=== PATIENT | female | born 1985 | race Hispanic/Latino ===

== ENCOUNTER 2019-04-09 00:29 | Emergency (ER) | payer BC, MEDICAID, OTHER ==
[2019-04-09 01:15] LABS: BASOPHILS % (AUTO) 0.7 % (0.0-5.0); EOSINOPHILS % (AUTO) 1.9 % (0.0-8.0); HEMATOCRIT 40.8 % (36-48); MEAN CORPUSCULAR HEMOGLOBIN 27.2 pg (27.0-33.0); MEAN CORPUSCULAR HGB CONC 33.7 g/dL (32.0-36.0); MEAN CORPUSCULAR VOLUME 80.8 fL (79-99); MONOCYTES % (AUTO) 6.2 % (3.0-13.0); NEUTROPHILS % (AUTO) 44.2 % (40.0-77.0); NUCLEATED RED BLOOD CELLS 0.2 % (0.0-0.19); PLATELET COUNT (AUTO) 248 K/uL (130-400); RED BLOOD CELL COUNT(AUTO) 5.05 MIL/uL (4.00-5.50); RED CELL DISTRIBUTION WIDTH 13.4 % (11.0-15.5); WHITE BLOOD COUNT (AUTO) 7.9 K/uL (4.8-10.8)
== END 2019-04-09 02:05 | disposition home or self-care (01) ==
LOC: EDH 00:29
DX: N92.0 Excessive and frequent menstruation with regular cycle (principal); N90.89 Other specified noninflammatory disorders of vulva and perineum; E11.9 Type 2 diabetes mellitus without complications
CPT/HCPCS: 36415; 84702; 85025; 86900; 86901